=== PATIENT | female | born 1975 | race Native Hawaiian/Other Pacific Islander ===

== ENCOUNTER 2019-06-06 01:30 | Emergency (ER) | payer SELFPAY ==
[2019-06-06 02:09] LABS: HCG Qualitative,Urine Negative (Negative)
[2019-06-06 02:11] LABS: Bacteria,Urine 2+ /HPF (Negative); Bilirubin,Urine NEG (Negative); Blood,Urine LG (Negative); Color,Urine Amber (Yellow); Protein,Urine <15 mg/dL mg/dL (Negative)
[2019-06-06] MEDS ORDERED: PHENAZOPYRIDINE 200 MG TAB PO ONE (02:32)
[2019-06-06] MEDS ORDERED: LIDOCAINE-MPF (1%) 10 MG/1 ML VIAL 5 ML INFILTRATI ONE (02:32)
[2019-06-06] MEDS ORDERED: KETOROLAC 30 MG/1 ML INJ IM ONE (02:32)
[2019-06-06] MEDS ORDERED: ONDANSETRON 4 MG ODT TAB PO ONE (02:32)
--- NOTE | 2019-06-06 03:13 | Emergency Department Report ---
ED Female HPI - General Chief complaint: Abdominal Pain Stated complaint: BURNING, FREQ URINATION Source: patient, family Mode of arrival: Ambulatory Limitations: Language Barrier - History of Present Illness Initial comments: Patient is a 43-year-old female with no past medical history who presented to the ED with complaint of acute onset persistent dysuria, urinary frequency and urgency, low back pain, suprapubic pressure for the last 2 days. Patient states that in the last 6 hours the symptoms have worsened with urine having "bad smell". Patient denies fever, chills, nausea, vomiting, diarrhea, dizziness, traumatic injury, heavy lifting, fall, cough, sore throat, chest pain or shortness of breath. MD Complaint: dysuria, pelvic pain (pressure), other (urinary urgency and frequency; low back pain) -: Sudden, days(s) (2) Location: suprapubic Radiation: non-radiating Severity: moderate Severity scale (0 -10): 6 Quality: sharp, burning Consistency: constant Improves with: none Worsens with: urination Are you Now?: No Associated Symptoms: denies other symptoms, abdominal pain (suprapubic pressure), dysuria, hematuria. denies: vaginal discharge, vaginal bleeding, nausea/vomiting, fever/chills, headaches, loss of appetite, rash, seizure, myles rtness of breath, syncope, weakness - Related Data Sexually active: Yes Previous Rx's Medication Instructions Recorded Last Taken Type Acetaminophen/Codeine [Tylenol 1 tab PO Q6H PRN #20 tab 06/02/15 Unknown Rx /Codeine # 3 tab] Ibuprofen [Motrin 800 MG tab] 800 mg PO Q8HR PRN #30 tablet 06/02/15 Unknown Rx Cyclobenzaprine [Flexeril] 10 mg PO Q8H PRN #21 tablet 06/06/19 Unknown Rx Ibuprofen [Motrin] 800 mg PO Q8HR PRN #24 tablet 06/06/19 Unknown Rx Phenazopyridine [Pyridium] 200 mg PO Q8H #21 tab 06/06/19 Unknown Rx cephALEXin [Keflex] 500 mg PO Q6HR #40 capsule 06/06/19 Unknown Rx Allergies Allergy/AdvReac Type Severity Reaction Status Date / Time No Known Allergies Allergy Verified 06/02/15 07:37 ED Review of Systems ROS: Stated complaint: BURNING, FREQ URINATION Other details as noted in HPI Constitutional: denies: chills, fever Eyes: denies: eye pain, eye discharge, vision change ENT: denies: ear pain, throat pain Respiratory: denies: cough, shortness of breath, wheezing Cardiovascular: denies: chest pain, palpitations Endocrine: no symptoms reported Gastrointestinal: abdominal pain (suprapubic pressure). denies: nausea, diarrhea Genitourinary: urgency, dysuria, frequency. denies: discharge Musculoskeletal: back pain, arthralgia, myalgia. denies: joint swelling Skin: denies: rash, lesions Neurological: denies: headache, weakness, paresthesias Psychiatric: denies: anxiety, depression Hematological/Lymphatic: denies: easy bleeding, easy bruising ED Past Medical Hx - Past Medical History Previous Medical History?: No - Surgical History Past Surgical History?: Yes Additional Surgical History: LEFT HAND - Social History Smoking Status: Never Smoker Substance Use Type: None - Medications Home Medications: Home Medications Medication Instructions Recorded Confirmed Last Taken Type Acetaminophen/Codeine [Tylenol 1 tab PO Q6H PRN #20 tab 06/02/15 Unknown Rx /Codeine # 3 tab] Ibuprofen [Motrin 800 MG tab] 800 mg PO Q8HR PRN #30 tablet 06/02/15 Unknown Rx Cyclobenzaprine [Flexeril] 10 mg PO Q8H PRN #21 tablet 06/06/19 Unknown Rx Ibuprofen [Motrin] 800 mg PO Q8HR PRN #24 tablet 06/06/19 Unknown Rx Phenazopyridine [Pyridium] 200 mg PO Q8H #21 tab 06/06/19 Unknown Rx cephALEXin [Keflex] 500 mg PO Q6HR #40 capsule 06/06/19 Unknown Rx ED Physical Exam - General Limitations: Language Barrier General appearance: alert, in no apparent distress - Head Head exam: Present: atraumatic, normocephalic, normal inspection - Eye Eye exam: Present: normal appearance, PERRL Pupils: Present: normal accommodation - ENT ENT exam: Present: normal exam, normal orophraynx, mucous membranes moist, TM's normal bilaterally, normal external ear exam - Neck Neck exam: Present: normal inspection, full ROM. Absent: tenderness, lymphadenopathy - Respiratory Respiratory exam: Present: normal lung sounds bilaterally. Absent: respiratory distress, wheezes, rales, rhonchi, chest wall tenderness, accessory muscle use, decreased breath sounds - Cardiovascular Cardiovascular Exam: Present: regular rate, normal rhythm, normal heart sounds. Absent: systolic murmur, diastolic murmur, rubs, gallop - GI/Abdominal GI/Abdominal exam: Present: soft, normal bowel sounds. Absent: tenderness, guarding, rebound, hyperactive bowel sounds, hypoactive bowel sounds - Extremities Exam Extremities exam: Present: normal inspection, full ROM, normal capillary refill - Back Exam Back exam: Present: normal inspection, full ROM. Absent: tenderness, CVA tenderness (R), muscle spasm, paraspinal tenderness - Neurological Exam Neurological exam: Present: alert, oriented X3, CN II-XII intact, normal gait, reflexes normal - Psychiatric Psychiatric exam: Present: normal affect, normal mood - Skin Skin exam: Present: warm, dry, intact, normal color. Absent: rash ED Course Vital Signs 06/06/19 01:35 Temperature 97.7 F Pulse Rate 92 H Respiratory 16 Rate Blood Pressure 172/90 O2 Sat by Pulse 97 Oximetry ED Medical Decision Making - Medical Decision Making This is a 43-year-old female who presented to the ED with acute onset persistent dysuria, urinary frequency and urgency, low back pain, hematuria and suprapubic pressure. In the ED, patient is alert and oriented x3 and is not in distress. Urinalysis shows significant urinary tract infection characterized by nitrite positive test, large leukocyte esterase, 2+ bacteria, >100 white blood cells and budding yeast in the urine. Patient was treated in the ED for acute urinary tract infection with Rocephin 1 g intramuscular injection and pain medications. On reevaluation, patient pain is well controlled with medications. Patient was discharged home on pain medication and antibiotics and patient was advised to follow-up with her primary care physician in 7 to 10 days for reevaluation or return to the ED immediately if symptoms get worse. - Differential Diagnosis UTI; Kidney stones; Ovarian cysts; STD Critical care attestation.: If time is entered above; I have spent that time in minutes in the direct care of this critically ill patient, excluding procedure time. ED Disposition Clinical Impression: Acute urinary tract infection, Spasm of muscle of lower back Disposition: TO HOME OR SELFCARE Is pt being admited?: No Does the pt Need Aspirin: No Condition: Stable Instructions: Abdominal Pain (ED), Urinary Tract Infection in Women (ED), Muscle Spasm (ED) Additional Instructions: Your urine test shows significant urinary tract infection. Therefore take medications with food, drink plenty of fluids and follow-up with your primary care physician in 7 to 10 days for reevaluation. Return to the ED immediately if symptoms get worse. Prescriptions: Cyclobenzaprine [Flexeril] 10 mg PO Q8H PRN #21 tablet PRN Reason: Muscle Spasm cephALEXin [Keflex] 500 mg PO Q6HR #40 capsule Ibuprofen [Motrin] 800 mg PO Q8HR PRN #24 tablet PRN Reason: Pain , Severe (7-10) Phenazopyridine [Pyridium] 200 mg PO Q8H #21 tab Referrals: [facility] [Outside] - 3-5 Days Time of Disposition: 03:16 Print Language: BOLIVIAN
[2019-06-06 03:43] VITALS: BP 156/74
== END 2019-06-06 03:39 | disposition home or self-care (01) ==
LOC: ED 01:30
DX: N39.0 Urinary tract infection, site not specified (principal); M62.830 Muscle spasm of back; Z79.899 Other long term (current) drug therapy
CPT/HCPCS: 81001; 81025; 87086; 96372; 99283; J0696; J1885; Q0162

== ENCOUNTER 2019-06-28 13:37 | Emergency (ER) | payer SELFPAY ==
[2019-06-28 14:09] VITALS: BP 166/83
[2019-06-28 14:41] LABS: Bacteria,Urine 1+ /HPF (Negative); Bilirubin,Urine NEG (Negative); Blood,Urine LG (Negative); Color,Urine Amber (Yellow)
[2019-06-28 14:42] LABS: WBC,Urine > 182.0 /HPF (0.0-6.0)
[2019-06-28] MEDS ORDERED: LIDOCAINE-MPF (1%) 10 MG/1 ML VIAL 5 ML INFILTRATI ONE (15:10)
[2019-06-28] MEDS ORDERED: AZITHROMYCIN 250 MG TAB PO ONE (15:10)
--- NOTE | 2019-06-28 15:12 | Emergency Department Report ---
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 She has associated dysuria, urgency, frequency, left lower back pain. She denies any vaginal discharge, fever, nausea, vomiting, diarrhea. She states that she is only had one sexual partner for 20 years and is not concerned for STDs. She denies any allergies to medications. LNMP: 06/11/2019. Patient states that she has an appointment with a upper caser on July 01. LAZARA Neal used for Stateless interpretation - Related Data Previous Rx's Medication Instructions Recorded Last Taken Type Acetaminophen/Codeine [Tylenol 1 tab PO Q6H PRN #20 tab 06/02/15 Unknown Rx /Codeine # 3 tab] Ibuprofen [Motrin 800 MG tab] 800 mg PO Q8HR PRN #30 tablet 06/02/15 Unknown Rx Cyclobenzaprine [Flexeril] 10 mg PO Q8H PRN #21 tablet 06/06/19 Unknown Rx Ibuprofen [Motrin] 800 mg PO Q8HR PRN #24 tablet 06/06/19 Unknown Rx Phenazopyridine [Pyridium] 200 mg PO Q8H #21 tab 06/06/19 Unknown Rx cephALEXin [Keflex] 500 mg PO Q6HR #40 capsule 06/06/19 Unknown Rx Acetaminophen/Codeine [Tylenol 1 tab PO Q6H PRN #10 tab 06/28/19 Unknown Rx /Codeine # 3 tab] Ondansetron [Zofran Odt] 4 mg PO Q8HR PRN #10 tab.rapdis 06/28/19 Unknown Rx Allergies Allergy/AdvReac Type Severity Reaction Status Date / Time No Known Allergies Allergy Verified 06/02/15 07:37 ED Review of Systems ROS: Stated complaint: UTI Other details as noted in HPI Comment: All other systems reviewed and negative ED Past Medical Hx - Past Medical History Previous Medical History?: No - Surgical History Past Surgical History?: Yes Additional Surgical History: LEFT HAND - Social History Smoking Status: Never Smoker Substance Use Type: Non Opiate Pain, Other - Medications Home Medications: Home Medications Medication Instructions Recorded Confirmed Last Taken Type Acetaminophen/Codeine [Tylenol 1 tab PO Q6H PRN #20 tab 06/02/15 Unknown Rx /Codeine # 3 tab] Ibuprofen [Motrin 800 MG tab] 800 mg PO Q8HR PRN #30 tablet 06/02/15 Unknown Rx Cyclobenzaprine [Flexeril] 10 mg PO Q8H PRN #21 tablet 06/06/19 Unknown Rx Ibuprofen [Motrin] 800 mg PO Q8HR PRN #24 tablet 06/06/19 Unknown Rx Phenazopyridine [Pyridium] 200 mg PO Q8H #21 tab 06/06/19 Unknown Rx cephALEXin [Keflex] 500 mg PO Q6HR #40 capsule 06/06/19 Unknown Rx Acetaminophen/Codeine [Tylenol 1 tab PO Q6H PRN #10 tab 06/28/19 Unknown Rx /Codeine # 3 tab] Ondansetron [Zofran Odt] 4 mg PO Q8HR PRN #10 tab.rapdis 06/28/19 Unknown Rx ED Physical Exam - General Limitations: Language Barrier General appearance: alert, in no apparent distress - Head Head exam: Present: atraumatic, normocephalic - Eye Eye exam: Present: normal appearance - ENT ENT exam: Present: mucous membranes moist - Respiratory Respiratory exam: Present: normal lung sounds bilaterally. Absent: respiratory distress, wheezes, rales, rhonchi, stridor, chest wall tenderness, accessory muscle use, decreased breath sounds, prolonged expiratory - Cardiovascular Cardiovascular Exam: Present: regular rate, normal rhythm, normal heart sounds. Absent: systolic murmur, diastolic murmur, rubs, gallop - GI/Abdominal GI/Abdominal exam: Present: soft, normal bowel sounds. Absent: distended, tenderness, guarding, rebound, rigid - Back Exam Back exam: Absent: CVA tenderness (R), CVA tenderness (L) - Neurological Exam Neurological exam: Present: alert, oriented X3 - Psychiatric Psychiatric exam: Present: normal affect, normal mood - Skin Skin exam: Present: warm, dry, intact ED Course Vital Signs 06/28/19 13:43 Temperature 98.1 F Pulse Rate 86 Respiratory 20 Rate Blood Pressure 166/83 O2 Sat by Pulse 99 Oximetry ED Medical Decision Making - Lab Data Lab Results 06/28/19 Range/Units 14:58 Urine Color Tamia (Yellow) Urine Turbidity Slightly-cloudy (Clear) Urine pH 6.0 (5.0-7.0) Ur Specific [place] 1.005 (1.003-1.030) Urine Protein 30 mg/dl (Negative) mg/dL Urine Glucose (UA) Neg (Negative) mg/dL Urine Ketones Neg (Negative) mg/dL Urine Blood Lg (Negative) Urine Nitrite Pos (Negative) Urine Bilirubin Neg (Negative) Urine Urobilinogen 4.0 (<2.0) mg/dL Ur Leukocyte Esterase Lg (Negative) Urine WBC (Auto) > 182.0 H (0.0-6.0) /HPF Urine RBC (Auto) 15.0 (0.0-6.0) /HPF U Epithel Cells (Auto) 1.0 (0-13.0) /HPF Urine Bacteria (Auto) 1+ (Negative) /HPF Ur Transition Epith Cell 2 /HPF - Medical Decision Making Patient is a 43-year-old female presents emergency room complaints of urinary symptoms that began yesterday. She has associated dysuria, urgency, frequency, left lower back pain. She denies any vaginal discharge, fever, nausea, vomiting, diarrhea. She states that she is only had one sexual partner for 20 years and is not concerned for STDs. She denies any allergies to medications. LNMP: 06/11/2019. Patient states that she has an appointment with a upper caser on July 01. Vitals are stable. No abdominal tenderness on exam, no CVA tenderness. Patient denies any concerns for STD but given that she just had a significant UTI earlier this month we will prophylactically treat patient with ceftriaxone and azithromycin, she is not having any vaginal complaints at this time. I looked at patient's urine culture during last visit it appears it was contaminated and they were not able to isolate an organism. She states that she completed the course of Keflex. Will place patient on ciprofloxacin and give patient pain medication. advised pt Please take medication as prescribed. Increase your water intake. Do not drive or operate heavy machinery while taking pain medication. Please keep your appointment with your upper caser on July 01 and have your urine retested for clearance of bacteria. Return to the emergency room immediately for any new or worsening symptoms. LAZARA Neal used for Stateless interpretation Critical care attestation.: If time is entered above; I have spent that time in minutes in the direct care of this critically ill patient, excluding procedure time. ED Disposition Clinical Impression: UTI (urinary tract infection) Qualifiers: Urinary tract infection type: acute cystitis Hematuria presence: with hematuria Qualified Code(s): N30.01 - Acute cystitis with hematuria Disposition: TO HOME OR SELFCARE Is pt being admited?: No Does the pt Need Aspirin: No Condition: Stable Instructions: Urinary Tract Infection in Women (ED) Additional Instructions: Please take medication as prescribed. Increase your water intake. Do not drive or operate heavy machinery while taking pain medication. Please keep your appointment with your upper caser on July 01 and have your urine retested for clearance of bacteria. Return to the emergency room immediately for any new or worsening symptoms. Por favor, tome los medicamentos segn lo prescrito. Aumente hammond ingesta de agua. No conduzca ni opere maquinaria pesada mientras est tomando analgsicos. Por favor, mantenga hammond yari con hammond nefrlogo el 2 de kiara y kurtis que hammond orina sea reatestada para el aclaramiento de bacterias. Regrese a la luther de emergencias inmediatamente para cualquier sntoma nuevo o que empeore. Prescriptions: Acetaminophen/Codeine [Tylenol /Codeine # 3 tab] 1 tab PO Q6H PRN #10 tab PRN Reason: Pain , Severe (7-10) Ondansetron [Zofran Odt] 4 mg PO Q8HR PRN #10 tab.rapdis PRN Reason: Nausea And Vomiting Referrals: your, upper caser [Other] - 2-3 Days TRISTA ARIAS MD [Staff Physician] - 2-3 Days Time of Disposition: 15:13 Print Language: CYPRIOT
== END 2019-06-28 15:41 | disposition home or self-care (01) ==
LOC: ED 13:37
DX: N39.0 Urinary tract infection, site not specified (principal); F15.10 Other stimulant abuse, uncomplicated; Z79.899 Other long term (current) drug therapy
CPT/HCPCS: 81001; 87086; 96372; 99283; J0696